=== PATIENT | female | born 1995 ===

== ENCOUNTER 2021-01-18 06:32 | Inpatient (IN) | payer BC ==
[2021-01-18] MEDS ORDERED: Methylergonovine 0.2 MG/1 ML Amp IM PRN (07:01)
[2021-01-18] MEDS ORDERED: Nalbuphine 10 MG/1 ML Vial IVPUSH PRN (07:01)
[2021-01-18] MEDS ORDERED: Water For Irrigation,Sterile 1,000 ML Container IRR PRN (07:01)
[2021-01-18] MEDS ORDERED: Sodium Chloride 0.9% 2.5 ML Syringe FLUSH PRN (07:01)
[2021-01-18] MEDS ORDERED: Sodium Chloride 0.9% 10 ML SDV IV PRN (07:01)
[2021-01-18] MEDS ORDERED: Tranexamic Acid 1,000 MG in Sodium Chloride 0.9% 100 ML IV PRN (07:01)
[2021-01-18] MEDS ORDERED: Ondansetron 4 MG/2 ML SDV IVPUSH PRN (07:01)
[2021-01-18] MEDS ORDERED: Misoprostol 200 MCG Tab PO PRN (07:01)
[2021-01-18] MEDS ORDERED: Lidocaine 1% 50 ML MDV INJECT PRN (07:01)
[2021-01-18] MEDS ORDERED: Carboprost Tromethamine 250 MCG/1 ML Amp IM PRN (07:01)
[2021-01-18] MEDS ORDERED: Butorphanol 1 MG/ML SDV IVPUSH PRN (07:01)
[2021-01-18] MEDS ORDERED: Sodium Chloride 0.9% 10 ML Syringe FLUSH PRN (07:01)
[2021-01-18] MEDS ORDERED: Terbutaline 1 MG/ML SDV SUBCUT PRN (07:04)
[2021-01-18] MEDS ORDERED: Oxytocin/0.9 % Sodium Chloride 30 UNIT/500 ML BAG IV SCH ×2 (07:15)
[2021-01-18] MEDS: Lactated Ringers 1,000 ML IV SCH ×2 (08:13→22:47)
[2021-01-18] MEDS: Misoprostol 25 MCG (1/4 of 100 MCG) Tab VAG PRN ×3 (08:15→16:10)
[2021-01-18] MEDS ORDERED: Ropivacaine HCl/PF 200 ML ONE (22:11)
--- NOTE | 2021-01-18 22:51 | PCM.PREANE ---
Preanesthetic Assessment - Anesthesia/Transfusion/Family Hx Anesthesia History: Prior Anesthesia Without Reaction Family History of Anesthesia Reaction: No Transfusion History: No Prior Transfusion(s) - Review of Systems General: No Symptoms Pulmonary: No Symptoms Cardiovascular: No Symptoms Gastrointestinal: No Symptoms Neurological: No Symptoms Other: Reports: None - Physical Assessment Height: 5 ft 4.96 in Weight: 239 lb 15.994 oz ASA Class: 2 Mental Status: Alert & Oriented x3 Airway Class: Mallampati = 3 Dentition: Reports: Normal Dentition ROM/Head Extension: Full Lungs: Clear to Auscultation, Normal Respiratory Effort Cardiovascular: Regular Rate, Regular Rhythm - Lab Values: Laboratory Last Values WBC 9.80 K/uL (4.0-11.0) 01/18/21 07:47 RBC 4.54 M/uL (4.30-5.90) 01/18/21 07:47 Hgb 10.9 g/dL (12.0-16.0) L 01/18/21 07:47 Hct 33.8 % (36.0-46.0) L 01/18/21 07:47 MCV 74.4 fL (80.0-98.0) L 01/18/21 07:47 MCH 24.0 pg (27.0-32.0) L 01/18/21 07:47 MCHC 32.2 g/dL (31.0-37.0) 01/18/21 07:47 RDW Std Deviation 49.6 fl (28.0-62.0) 01/18/21 07:47 RDW Coeff of Remy 18 % (11.0-15.0) H 01/18/21 07:47 Plt Count 154 K/uL (150-400) 01/18/21 07:47 Nucleated RBC % 0.0 /100WBC 01/18/21 07:47 Nucleated RBCs # 0 K/uL 01/18/21 07:47 SARS-CoV-2 RNA ([place]ISON) NEGATIVE (NEGATIVE) 01/18/21 07:31 Blood Type O POSITIVE 01/18/21 07:47 Antibody Screen NEGATIVE 01/18/21 07:47 - Allergies Allergies/Adverse Reactions: Allergies Allergy/AdvReac Type Severity Reaction Status Date / Time No Known Allergies Allergy Verified 01/18/21 06:59 - Blood Blood Available: Yes Product(s) Available: PRBC - Anesthesia Plan Pre-Op Medication Ordered: None - Acknowledgements Anesthesia Type Planned: Epidural Pt an Appropriate Candidate for the Planned Anesthesia: Yes Alternatives and Risks of Anesthesia Discussed w Pt/Guardian: Yes Pt/Guardian Understands and Agrees with Anesthesia Plan: Yes PreAnesthesia Questionnaire [employer] History: Reports: Psychiatric History: Reports: Anxiety, Depression Other Dermatologic History: Right breast fibroadenoma - Infectious Disease History Infectious Disease History: Reports: Chicken Pox - SUBSTANCE USE Tobacco Use Status *Q: Never Tobacco User Second Hand Smoke Exposure: No Recreational Drug Use History: No - HOME MEDS Home Medications: Home Meds Pnv #30/Iron Carb&Aspg/Fa/Om3 [OB Complete with DHA Softgel] 01/18/21 [History] - CURRENT (IN HOUSE) MEDS Current Meds: Current Medications Butorphanol Tartrate (Butorphanol 1 Mg/Ml Sdv) 1 mg IVPUSH Q1H PRN PRN Reason: Pain (severe 7-10) Carboprost Tromethamine (Carboprost Tromethamine 250 Mcg/1 Ml Amp) 250 mcg IM ASDIRECTED PRN PRN Reason: Post Hemorrhage Oxytocin/Sodium Chloride (Oxytocin 30 Unit/500 Ml-Ns) 30 unit in 500 mls @ 999 mls/hr IV TITRATE SHILA Tranexamic Acid 1,000 mg/ (Sodium Chloride) 110 mls @ 660 mls/hr IV ONETIME PRN PRN Reason: Bleeding Lactated Ringer's (Ringers, Lactated) 1,000 mls @ 150 mls/hr IV ASDIRECTED SHILA Last Infusion: 01/18/21 11:50 Dose: 0 mls/hr Documented by: Oxytocin/Sodium Chloride (Oxytocin 30 Unit/500 Ml-Ns) 30 unit in 500 mls @ 2 mls/hr IV TITRATE SHILA; Protocol Lidocaine HCl (Lidocaine 1% 50 Ml Mdv) 50 ml INJECT ONETIME PRN PRN Reason: Laceration repair Methylergonovine Maleate (Methylergonovine 0.2 Mg/1 Ml Amp) 0.2 mg IM ASDIRECTED PRN PRN Reason: Post Hemorrhage Misoprostol (Misoprostol 200 Mcg Tab) 200 mcg PO ONETIME PRN PRN Reason: Post Hemorrhage Misoprostol (Misoprostol 25 Mcg (1/4 Of 100 Mcg) Tab) 25 mcg VAG Q4H PRN PRN Reason: Cervical Ripening Last Admin: 01/18/21 16:10 Dose: 25 mcg Documented by: Nalbuphine HCl (Nalbuphine 10 Mg/1 Ml Vial) 10 mg IVPUSH Q1H PRN PRN Reason: Pain (severe 7-10) Ondansetron HCl (Ondansetron 4 Mg/2 Ml Sdv) 4 mg IVPUSH Q6H PRN PRN Reason: Nausea/Vomiting Sodium Chloride (Sodium Chloride 0.9% 10 Ml Syringe) 10 ml FLUSH ASDIRECTED PRN PRN Reason: Keep Vein Open Sodium Chloride (Sodium Chloride 0.9% 2.5 Ml Syringe) 2.5 ml FLUSH ASDIRECTED PRN PRN Reason: Keep Vein Open Sodium Chloride (Sodium Chloride 0.9% 10 Ml Sdv) 10 ml IV ASDIRECTED PRN PRN Reason: IV Use Sterile Water (Water For Irrigation,Sterile 1,000 Ml Container) 1,000 ml IRR ASDIRECTED PRN PRN Reason: delivery Terbutaline Sulfate (Terbutaline 1 Mg/Ml Sdv) 0.25 mg SUBCUT ASDIRECTED PRN PRN Reason: Tacysystole Discontinued Medications Ropivacaine (Naropin 0.2%) Confirm Administered Dose 200 mls @ as directed .ROUTE [facility] ONE Stop: 01/18/21 22:12 - Pre-Procedure Checklist Attending Provider Aware: Yes Chart Reviewed: Yes Consent Signed: Yes Labs Reviewed: Yes VS/FHR Reviewed: Yes Patient Identification Confirmation Method: Reports: Verbal Patient Pt an Appropriate Candidate for the Planned Anesthesia: Yes Alternatives and Risks of Anesthesia Discussed w Pt/Guardian: Yes - Procedure Procedure Start Date: 01/18/21 Procedure Start Time: 22:[address]: Reports: Blood Pressure, Heart Rate, SPO2 Functional IV: Yes Safety Measures: Reports: Patient Identified, Procedure Verified, Site Verified, Procedure Time Out Patient Position: Reports: Sitting Prep: Reports: Betadine x3, Sterile Drape Local Anesthetic: Reports: Intradermal Wheal w Lidocaine 1% Regional Placement Level: Reports: L3-4 Needle: Reports: 17 g Touhy Approach: Reports: Midline Technique: Reports: ARISTEO Plastic Syringe Parasthesia: Reports: None Fluid Obtained: Reports: None Test Dose Time: 22:31 Test Dose Medication: Reports: Lidocaine 1.5% w Epinephrine 1:200,000 Test Dose Response: Reports: Negative Loading Dose Time: 22:30 Loading Dose Medication: bupivicaine 0.25% 10cc Loading Dose Patient Position: sitting Continuous Infusion Start Time: 22:35 Continuous Infusion Medication: ropivicaine 0.2% Continuous Infusion Rate: 16 Continuous Infusion PCS Bolus Option: 4 Continuous Infusion Lockout Dose (cc/hr): 15 Patient Position Post Placement: Reports: Supline/LAQUITA VS and FHR Monitored in Unit Post Placement: Yes Procedure End Date: 01/18/21 Procedure End Time: 23:20
[2021-01-19] MEDS: Lactated Ringers 1,000 ML IV SCH ×3 (03:39→17:42)
[2021-01-19] MEDS ORDERED: Ropivacaine HCl/PF 200 ML ONE (11:16)
[2021-01-19] MEDS ORDERED: Sodium Chloride 0.9% 100 ML IV SCH (17:30)
[2021-01-19] MEDS ORDERED: Lanolin 100% Cream 7 GM Tube TOP PRN (18:25)
[2021-01-19] MEDS ORDERED: Bisacodyl 10 MG Supp RECTAL PRN (18:25)
[2021-01-19] MEDS ORDERED: Acetaminophen 500 MG Tab PO PRN (18:25)
[2021-01-19] MEDS ORDERED: Witch Hazel Medicated Pads 40/Jar TOP PRN (18:25)
[2021-01-19] MEDS ORDERED: Ibuprofen 400 MG Tab PO PRN (18:25)
[2021-01-19] MEDS ORDERED: Docusate Sodium 100 MG Cap PO PRN (18:25)
[2021-01-19] MEDS ORDERED: oxyCODONE 5 MG Tab PO PRN (18:25)
[2021-01-19] MEDS ORDERED: Benzocaine/Menthol 20%-0.5% Spray 78 GM Cannister TOP PRN (18:25)
--- NOTE | 2021-01-19 18:35 | PCM.DEL ---
L & D Note - General Info Date of Service: 01/19/21 - Delivery Note Labor: Augmented by Oxytocin Cervical Ripening Method: Misoprostil Delivery Outcome: Livebirth Infant Delivery Method: Spontaneous Vaginal Delivery-Single Presentation: Right Occiput Anterior (TRISTIN) Nuchal Cord: Present Anesthesia Type: Epidural Amniotic Fluid Description: Clear Episiotomy Type: None Laceration: 2nd Degree Suture type: Other (monocryl) Suture size: 2-0 Placenta: Intact Cord: 3 Vessels Estimated Blood Loss: 1,500 Resuscitation Needed: No Score 1 min: 7 Score 5 min: 9 Second Stage Interventions: Reports: Laboring Down, Pushing Effectively Delivery Comments (Free Text/Narrative):: Live female delivered at 454pm , 7/9 weight 4210g 2nd degree vaginal laceration repaired in layers with 2.0 monocryl Left vaginal laceration repaired with 2.0 monocryl Lower uterine segment noted to be atonic , hence with routine pitocin running , Hemabate , Methergine and TXA given EBL : 1500 - General Info Date of Service: 01/19/21 - Patient Data Weight - Most Recent: 108.862 kg Lab Results Last 24 Hours: Laboratory Results - last 24 hr 01/19/21 Range/Units 01:00 Membrane Rupture POSITIVE Med Orders - Current: Current Medications Acetaminophen (Acetaminophen 500 Mg Tab) 500 mg PO Q4H PRN PRN Reason: Pain (mild 1-3) Acetaminophen (Acetaminophen 500 Mg Tab) 1,000 mg PO Q4H PRN PRN Reason: Pain (mild 1-3) Benzocaine/Menthol (Benzocaine/Menthol 20%-0.5% [place] 78 Gm Cannister) 78 gm TOP ASDIRECTED PRN PRN Reason: Perineal Comfort Measure Bisacodyl (Bisacodyl 10 Mg Supp) 10 mg RECTAL ONETIME PRN PRN Reason: Constipation Butorphanol Tartrate (Butorphanol 1 Mg/Ml Sdv) 1 mg IVPUSH Q1H PRN PRN Reason: Pain (severe 7-10) Carboprost Tromethamine (Carboprost Tromethamine 250 Mcg/1 Ml Amp) 250 mcg IM ASDIRECTED PRN PRN Reason: Post Hemorrhage Last Admin: 01/19/21 17:15 Dose: 250 mcg Documented by: Docusate Sodium (Docusate Sodium 100 Mg Cap) 100 mg PO Q12H PRN PRN Reason: Constipation Emollient Ointment (Lanolin 100% Cream 7 Gm Tube) 0 gm TOP ASDIRECTED PRN PRN Reason: Sore Nipples Oxytocin/Sodium Chloride (Oxytocin 30 Unit/500 Ml-Ns) 30 unit in 500 mls @ 999 mls/hr IV TITRATE SHILA Last Admin: 01/19/21 17:42 Dose: 500 mls/hr Documented by: Tranexamic Acid 1,000 mg/ (Sodium Chloride) 110 mls @ 660 mls/hr IV ONETIME PRN PRN Reason: Bleeding Last Admin: 01/19/21 17:05 Dose: 660 mls/hr Documented by: Lactated Ringer's (Ringers, Lactated) 1,000 mls @ 150 mls/hr IV ASDIRECTED [facility] Last Admin: 01/19/21 17:42 Dose: 125 mls/hr Documented by: Oxytocin/Sodium Chloride (Oxytocin 30 Unit/500 Ml-Ns) 30 unit in 500 mls @ 2 mls/hr IV TITRATE [facility]; Protocol Last Titration: 01/19/21 16:54 Dose: 999 munits/min, 999 mls/hr Documented by: Sodium Chloride (Normal Saline) 100 mls @ 150 mls/hr IV ASDIRECTED [facility] Ibuprofen (Ibuprofen 400 Mg Tab) 400 mg PO Q4H PRN PRN Reason: Pain (mild 1-3) Ibuprofen (Ibuprofen 800 Mg Tab) 800 mg PO Q6H PRN PRN Reason: Pain (mild 1-3) Lidocaine HCl (Lidocaine 1% 50 Ml Mdv) 50 ml INJECT ONETIME PRN PRN Reason: Laceration repair Methylergonovine Maleate (Methylergonovine 0.2 Mg/1 Ml Amp) 0.2 mg IM ASDIRECTED PRN PRN Reason: Post Hemorrhage Last Admin: 01/19/21 17:14 Dose: 0.2 mg Documented by: Misoprostol (Misoprostol 200 Mcg Tab) 200 mcg PO ONETIME PRN PRN Reason: Post Hemorrhage Misoprostol (Misoprostol 25 Mcg (1/4 Of 100 Mcg) Tab) 25 mcg VAG Q4H PRN PRN Reason: Cervical Ripening Last Admin: 01/18/21 16:10 Dose: 25 mcg Documented by: Nalbuphine HCl (Nalbuphine 10 Mg/1 Ml Vial) 10 mg IVPUSH Q1H PRN PRN Reason: Pain (severe 7-10) Ondansetron HCl (Ondansetron 4 Mg/2 Ml Sdv) 4 mg IVPUSH Q6H PRN PRN Reason: Nausea/Vomiting Last Admin: 01/19/21 17:15 Dose: 4 mg Documented by: Oxycodone HCl (Oxycodone 5 Mg Tab) 5 mg PO Q2H PRN PRN Reason: Pain (severe 7-10) Sodium Chloride (Sodium Chloride 0.9% 10 Ml Syringe) 10 ml FLUSH ASDIRECTED PRN PRN Reason: Keep Vein Open Sodium Chloride (Sodium Chloride 0.9% 2.5 Ml Syringe) 2.5 ml FLUSH ASDIRECTED PRN PRN Reason: Keep Vein Open Sodium Chloride (Sodium Chloride 0.9% 10 Ml Sdv) 10 ml IV ASDIRECTED PRN PRN Reason: IV Use Sterile Water (Water For Irrigation,Sterile 1,000 Ml Container) 1,000 ml IRR ASDIRECTED PRN PRN Reason: delivery Terbutaline Sulfate (Terbutaline 1 Mg/Ml Sdv) 0.25 mg SUBCUT ASDIRECTED PRN PRN Reason: Tacysystole Witch Savana (Witch Savana Medicated Pads 40/Jar) 1 pad TOP ASDIRECTED PRN PRN Reason: comfort care Discontinued Medications Ropivacaine (Naropin 0.2%) Confirm Administered Dose 200 mls @ as directed .ROUTE .STK-MED ONE Stop: 01/18/21 22:12 Ropivacaine (Naropin 0.2%) Confirm Administered Dose 200 mls @ as directed .ROUTE .STK-MED ONE Stop: 01/19/21 11:17 - Exam Urinary Catheter Total Time: 0Days 6Hours - Problem List & Annotations (1) Vaginal delivery SNOMED Code(s): 598479545 Code(s): O80 - ENCOUNTER FOR FULL-TERM UNCOMPLICATED DELIVERY Status: Acute Current Visit: Yes (2) hemorrhage SNOMED Code(s): 80705858 Code(s): O72.1 - OTHER IMMEDIATE HEMORRHAGE Status: Acute Current Visit: Yes Qualifiers: hemorrhage type: third-stage Qualified Code(s): O72.0 - Third- stage hemorrhage - Problem List Review Problem List Initiated/Reviewed/Updated: Yes - My Orders Last 24 Hours: My Active Orders 01/19/21 07:37 Antiembolic Devices [RC] PER UNIT ROUTINE SCD [Sequential Compression Device] [OM.PC] Routine 01/19/21 17:30 Sodium Chloride 0.9% [Normal Saline] 100 ml IV ASDIRECTED 01/19/21 18:25 Patient Status [ADT] Routine May Shower [RC] ASDIRECTED Up ad Maude [RC] ASDIRECTED Vital Signs [RC] PER UNIT ROUTINE CBC WITH AUTO DIFF [HEME] Routine Acetaminophen [Tylenol Extra Strength] 1,000 mg PO Q4H PRN Acetaminophen [Tylenol Extra Strength] 500 mg PO Q4H PRN Benzocaine/Menthol [Dermoplast Pain Relief 20%-0.5% [place]] 78 gm TOP ASDIRECTED PRN Docusate Sodium [Colace] 100 mg PO Q12H PRN Ibuprofen [Motrin] 400 mg PO Q4H PRN Ibuprofen [Motrin] 800 mg PO Q6H PRN Lanolin [Lansinoh HPA] See Dose Instructions TOP ASDIRECTED PRN bisacodyL [Dulcolax] 10 mg RECTAL ONETIME PRN oxyCODONE 5 mg PO Q2H PRN witch Savana [Tucks] 1 pad TOP ASDIRECTED PRN Assess Lochia [WOMSER] Per Unit Routine Assess Uterine Involution [WOMSER] Per Unit Routine Peripheral IV Discontinue [OM.PC] Routine Resuscitation Status Routine 01/20/21 06:00 HEMOGLOBIN/HEMATOCRIT,HH [HEME] Routine - Assessment Assessment:: 25yo P1 s/p PPDO Hemorrhage , EBL 1500 Macrosomia Rh positive Rubella Immune - Plan Plan:: Routine care
[2021-01-19] MEDS: Ibuprofen 800 MG Tab PO PRN (19:20)
[2021-01-20] MEDS: Acetaminophen 500 MG Tab PO PRN ×2 (01:13→07:54)
[2021-01-20] MEDS: Lactated Ringers 1,000 ML IV SCH (01:56)
--- NOTE | 2021-01-20 08:53 | PCM.PNPP ---
- General Info Date of Service: 01/20/21 Subjective Update: Patient reports minimal dizziness with ambulation, however does note that she shakes when standing. Denies chest pain, shortness of breath. Minimal bleeding. Bottle feeding. Functional Status: Reports: Pain Controlled, Tolerating Diet, Ambulating, Urinating - Review of Systems General: Reports: No Symptoms HEENT: Reports: No Symptoms Pulmonary: Reports: No Symptoms Cardiovascular: Reports: No Symptoms Gastrointestinal: Reports: No Symptoms Genitourinary: Reports: No Symptoms Musculoskeletal: Reports: No Symptoms Skin: Reports: No Symptoms Neurological: Reports: No Symptoms Psychiatric: Reports: No Symptoms - Patient Data Vital Signs - Most Recent: Last Vital Signs Temp 36.2 C 01/20/21 07:59 Pulse 98 01/20/21 07:59 Resp 18 01/20/21 07:59 BP 116/52 L 01/20/21 07:59 Pulse Ox 98 01/20/21 07:59 Weight - Most Recent: 108.862 kg Lab Results - Last 24 Hours: Laboratory Results - last 24 hr 01/18/21 01/19/21 01/20/21 Range/Units 07:47 19:04 05:51 WBC 17.21 H (4.0-11.0) K/uL RBC 3.59 L (4.30-5.90) M/uL Hgb 8.6 L 6.2 L (12.0-16.0) g/dL Hct 26.7 L 19.5 L (36.0-46.0) % MCV 74.4 L (80.0-98.0) fL MCH 24.0 L (27.0-32.0) pg MCHC 32.2 (31.0-37.0) g/dL RDW Std Deviation 50.0 (28.0-62.0) fl RDW Coeff of Remy 18 H (11.0-15.0) % Plt Count 143 L (150-400) K/uL MPV 11.60 (7.40-12.00) fL Neut % (Auto) 86.0 H (48.0-80.0) % Lymph % (Auto) 4.4 L (16.0-40.0) % [place] % (Auto) 9.4 (0.0-15.0) % Eos % (Auto) 0.1 (0.0-7.0) % Baso % (Auto) 0.1 (0.0-1.5) % Neut # (Auto) 14.8 H (1.4-5.7) K/uL Lymph # (Auto) 0.8 (0.6-2.4) K/uL Caroline # (Auto) 1.6 H (0.0-0.8) K/uL Eos # (Auto) 0.0 (0.0-0.7) K/uL Baso # (Auto) 0.0 (0.0-0.1) K/uL Nucleated RBC % 0.0 /100WBC Nucleated RBCs # 0 K/uL Blood Type O POSITIVE Antibody Screen NEGATIVE Crossmatch See Detail Med Orders - Current: Current Medications Acetaminophen (Acetaminophen 500 Mg Tab) 500 mg PO Q4H PRN PRN Reason: Pain (mild 1-3) Acetaminophen (Acetaminophen 500 Mg Tab) 1,000 mg PO Q4H PRN PRN Reason: Pain (mild 1-3) Last Admin: 01/20/21 07:54 Dose: 1,000 mg Documented by: Benzocaine/Menthol (Benzocaine/Menthol 20%-0.5% [place] 78 Gm Cannister) 78 gm TOP ASDIRECTED PRN PRN Reason: Perineal Comfort Measure Last Admin: 01/19/21 19:21 Dose: 78 gram Documented by: Bisacodyl (Bisacodyl 10 Mg Supp) 10 mg RECTAL ONETIME PRN PRN Reason: Constipation Butorphanol Tartrate (Butorphanol 1 Mg/Ml Sdv) 1 mg IVPUSH Q1H PRN PRN Reason: Pain (severe 7-10) Carboprost Tromethamine (Carboprost Tromethamine 250 Mcg/1 Ml Amp) 250 mcg IM ASDIRECTED PRN PRN Reason: Post Hemorrhage Last Admin: 01/19/21 17:15 Dose: 250 mcg Documented by: Docusate Sodium (Docusate Sodium 100 Mg Cap) 100 mg PO Q12H PRN PRN Reason: Constipation Emollient Ointment (Lanolin 100% Cream 7 Gm Tube) 0 gm TOP ASDIRECTED PRN PRN Reason: Sore Nipples Last Admin: 01/19/21 19:21 Dose: 7 gm Documented by: Oxytocin/Sodium Chloride (Oxytocin 30 Unit/500 Ml-Ns) 30 unit in 500 mls @ 999 mls/hr IV TITRATE SHILA Last Admin: 01/19/21 17:42 Dose: 500 mls/hr Documented by: Tranexamic Acid 1,000 mg/ (Sodium Chloride) 110 mls @ 660 mls/hr IV ONETIME PRN PRN Reason: Bleeding Last Admin: 01/19/21 17:05 Dose: 660 mls/hr Documented by: Lactated Ringer's (Ringers, Lactated) 1,000 mls @ 150 mls/hr IV ASDIRECTED SHILA Last Admin: 01/20/21 01:56 Dose: 125 mls/hr Documented by: Oxytocin/Sodium Chloride (Oxytocin 30 Unit/500 Ml-Ns) 30 unit in 500 mls @ 2 mls/hr IV TITRATE SHILA; Protocol Last Titration: 01/19/21 16:54 Dose: 999 munits/min, 999 mls/hr Documented by: Ibuprofen (Ibuprofen 400 Mg Tab) 400 mg PO Q4H PRN PRN Reason: Pain (mild 1-3) Ibuprofen (Ibuprofen 800 Mg Tab) 800 mg PO Q6H PRN PRN Reason: Pain (mild 1-3) Last Admin: 01/19/21 19:20 Dose: 800 mg Documented by: Lidocaine HCl (Lidocaine 1% 50 Ml Mdv) 50 ml INJECT ONETIME PRN PRN Reason: Laceration repair Methylergonovine Maleate (Methylergonovine 0.2 Mg/1 Ml Amp) 0.2 mg IM ASDIRECTED PRN PRN Reason: Post Hemorrhage Last Admin: 01/19/21 17:14 Dose: 0.2 mg Documented by: Misoprostol (Misoprostol 200 Mcg Tab) 200 mcg PO ONETIME PRN PRN Reason: Post Hemorrhage Misoprostol (Misoprostol 25 Mcg (1/4 Of 100 Mcg) Tab) 25 mcg VAG Q4H PRN PRN Reason: Cervical Ripening Last Admin: 01/18/21 16:10 Dose: 25 mcg Documented by: Nalbuphine HCl (Nalbuphine 10 Mg/1 Ml Vial) 10 mg IVPUSH Q1H PRN PRN Reason: Pain (severe 7-10) Ondansetron HCl (Ondansetron 4 Mg/2 Ml Sdv) 4 mg IVPUSH Q6H PRN PRN Reason: Nausea/Vomiting Last Admin: 01/19/21 17:15 Dose: 4 mg Documented by: Oxycodone HCl (Oxycodone 5 Mg Tab) 5 mg PO Q2H PRN PRN Reason: Pain (severe 7-10) Sodium Chloride (Sodium Chloride 0.9% 10 Ml Syringe) 10 ml FLUSH ASDIRECTED PRN PRN Reason: Keep Vein Open Sodium Chloride (Sodium Chloride 0.9% 2.5 Ml Syringe) 2.5 ml FLUSH ASDIRECTED PRN PRN Reason: Keep Vein Open Sodium Chloride (Sodium Chloride 0.9% 10 Ml Sdv) 10 ml IV ASDIRECTED PRN PRN Reason: IV Use Sterile Water (Water For Irrigation,Sterile 1,000 Ml Container) 1,000 ml IRR ASDIRECTED PRN PRN Reason: delivery Terbutaline Sulfate (Terbutaline 1 Mg/Ml Sdv) 0.25 mg SUBCUT ASDIRECTED PRN PRN Reason: Tacysystole Witch Savana (Witch Savana Medicated Pads 40/Jar) 1 pad TOP ASDIRECTED PRN PRN Reason: comfort care Last Admin: 01/19/21 19:22 Dose: 1 pad Documented by: Discontinued Medications Ropivacaine (Naropin 0.2%) Confirm Administered Dose 200 mls @ as directed .ROUTE .STK-MED ONE Stop: 01/18/21 22:12 Ropivacaine (Naropin 0.2%) Confirm Administered Dose 200 mls @ as directed .ROUTE .STK-MED ONE Stop: 01/19/21 11:17 Sodium Chloride (Normal Saline) 100 mls @ 150 mls/hr IV ASDIRECTED SHILA - Interaction Infant Disposition, : [place] in Room with Family Infant Feeding: Bottle Fed Infant Support Person: - Recovery Exam Fundal Level: 2 Fingerbreadths Below Umbilicus Fundal Placement: Midline Lochia Amount: Small Lochia Color: Rubra/Red Bladder Status: Voiding Urinary Elimination: Voided - Exam General: Alert, Oriented Neck: Supple Lungs: Normal Respiratory Effort GI/Abdominal Exam: Soft, Non-Tender, No Distention Extremities: No Pedal Edema Skin: Warm, Dry, Intact Neurological: No New Focal Deficit Psy/Mental Status: Alert, Normal Affect, Normal Mood - Problem List & Annotations (1) hemorrhage SNOMED Code(s): 22108053 Code(s): O72.1 - OTHER IMMEDIATE HEMORRHAGE Status: Acute Current Visit: Yes Qualifiers: hemorrhage type: third-stage Qualified Code(s): O72.0 - Third- stage hemorrhage (2) Vaginal delivery SNOMED Code(s): 059612195 Code(s): O80 - ENCOUNTER FOR FULL-TERM UNCOMPLICATED DELIVERY Status: Acute Current Visit: Yes - Problem List Review Problem List Initiated/Reviewed/Updated: Yes - My Orders Last 24 Hours: My Active Orders 01/20/21 Breakfast Regular Diet [DIET] 01/20/21 07:41 Verify Patient Consent Obtain [RC] ASDIRECTED RED BLOOD CELLS LP [BBK] Routine Transfuse Red Blood Cells [COMM] Routine 01/21/21 05:11 HEMOGLOBIN/HEMATOCRIT,HH [HEME] AM - Assessment Assessment:: 25yo s/p , PPD#1 - Plan Plan:: 1. hemorrhage with anemia: Plan for transfusion of 2 units packed RBCs due to symptomatic anemia and hemoglobin of 6.2. Repeat hemoglobin in AM. 2. Rh positive, Rubella immune, GBS negative 3. Dispo: Plan discharge on PPD#2 if hemoglobin stable and asymptomatic.
[2021-01-20] MEDS: Ibuprofen 800 MG Tab PO PRN ×2 (14:18→23:14)
[2021-01-21] MEDS: Acetaminophen 500 MG Tab PO PRN (08:21)
--- NOTE | 2021-01-21 08:36 | PCM.PNPP ---
- General Info Date of Service: 01/21/21 Subjective Update: Patient states she feels better after having received blood transfusion yesterday. Denies dizziness, chest pain, shortness of breath. Minimal lochia. Functional Status: Reports: Pain Controlled, Tolerating Diet, Ambulating, Urinating - Review of Systems General: Reports: No Symptoms HEENT: Reports: No Symptoms Pulmonary: Reports: No Symptoms Cardiovascular: Reports: No Symptoms Gastrointestinal: Reports: No Symptoms Genitourinary: Reports: No Symptoms Musculoskeletal: Reports: No Symptoms Skin: Reports: No Symptoms Neurological: Reports: No Symptoms Psychiatric: Reports: No Symptoms - Patient Data Vital Signs - Most Recent: Last Vital Signs Temp 36.5 C 01/21/21 07:39 Pulse 75 01/21/21 07:39 Resp 16 01/21/21 07:39 BP 122/65 01/21/21 07:39 Pulse Ox 99 01/21/21 07:39 Weight - Most Recent: 108.862 kg I&O - Last 24 Hours: Intake & Output 01/20/21 01/21/21 01/21/21 22:59 06:59 14:59 Intake Total 350 Balance 350 Lab Results - Last 24 Hours: Laboratory Results - last 24 hr 01/18/21 01/18/21 01/21/21 Range/Units 07:47 07:47 05:45 Hgb 8.6 L (12.0-16.0) g/dL Hct 25.9 L (36.0-46.0) % RPR Non-Reac (Non-Reac) Blood Type O POSITIVE Antibody Screen NEGATIVE Crossmatch See Detail Med Orders - Current: Current Medications Acetaminophen (Acetaminophen 500 Mg Tab) 500 mg PO Q4H PRN PRN Reason: Pain (mild 1-3) Acetaminophen (Acetaminophen 500 Mg Tab) 1,000 mg PO Q4H PRN PRN Reason: Pain (mild 1-3) Last Admin: 01/21/21 08:21 Dose: 1,000 mg Documented by: Benzocaine/Menthol (Benzocaine/Menthol 20%-0.5% [place] 78 Gm Cannister) 78 gm TOP ASDIRECTED PRN PRN Reason: Perineal Comfort Measure Last Admin: 01/19/21 19:21 Dose: 78 gram Documented by: Bisacodyl (Bisacodyl 10 Mg Supp) 10 mg RECTAL ONETIME PRN PRN Reason: Constipation Carboprost Tromethamine (Carboprost Tromethamine 250 Mcg/1 Ml Amp) 250 mcg IM ASDIRECTED PRN PRN Reason: Post Hemorrhage Last Admin: 01/19/21 17:15 Dose: 250 mcg Documented by: Docusate Sodium (Docusate Sodium 100 Mg Cap) 100 mg PO Q12H PRN PRN Reason: Constipation Last Admin: 01/20/21 20:51 Dose: 100 mg Documented by: Emollient Ointment (Lanolin 100% Cream 7 Gm Tube) 0 gm TOP ASDIRECTED PRN PRN Reason: Sore Nipples Last Admin: 01/19/21 19:21 Dose: 7 gm Documented by: Lactated Ringer's (Ringers, Lactated) 1,000 mls @ 150 mls/hr IV ASDIRECTED SHILA Last Admin: 01/20/21 01:56 Dose: 125 mls/hr Documented by: Ibuprofen (Ibuprofen 400 Mg Tab) 400 mg PO Q4H PRN PRN Reason: Pain (mild 1-3) Ibuprofen (Ibuprofen 800 Mg Tab) 800 mg PO Q6H PRN PRN Reason: Pain (mild 1-3) Last Admin: 01/20/21 23:14 Dose: 800 mg Documented by: Methylergonovine Maleate (Methylergonovine 0.2 Mg/1 Ml Amp) 0.2 mg IM ASDIRECTED PRN PRN Reason: Post Hemorrhage Last Admin: 01/19/21 17:14 Dose: 0.2 mg Documented by: Misoprostol (Misoprostol 200 Mcg Tab) 200 mcg PO ONETIME PRN PRN Reason: Post Hemorrhage Oxycodone HCl (Oxycodone 5 Mg Tab) 5 mg PO Q2H PRN PRN Reason: Pain (severe 7-10) Sodium Chloride (Sodium Chloride 0.9% 10 Ml Syringe) 10 ml FLUSH ASDIRECTED PRN PRN Reason: Keep Vein Open Sodium Chloride (Sodium Chloride 0.9% 2.5 Ml Syringe) 2.5 ml FLUSH ASDIRECTED PRN PRN Reason: Keep Vein Open Sodium Chloride (Sodium Chloride 0.9% 10 Ml Sdv) 10 ml IV ASDIRECTED PRN PRN Reason: IV Use Witch Savana (Witch Savana Medicated Pads 40/Jar) 1 pad TOP ASDIRECTED PRN PRN Reason: comfort care Last Admin: 01/19/21 19:22 Dose: 1 pad Documented by: Discontinued Medications Butorphanol Tartrate (Butorphanol 1 Mg/Ml Sdv) 1 mg IVPUSH Q1H PRN PRN Reason: Pain (severe 7-10) Oxytocin/Sodium Chloride (Oxytocin 30 Unit/500 Ml-Ns) 30 unit in 500 mls @ 999 mls/hr IV TITRATE SHILA Last Admin: 01/19/21 17:42 Dose: 500 mls/hr Documented by: Tranexamic Acid 1,000 mg/ (Sodium Chloride) 110 mls @ 660 mls/hr IV ONETIME PRN PRN Reason: Bleeding Last Admin: 01/19/21 17:05 Dose: 660 mls/hr Documented by: Oxytocin/Sodium Chloride (Oxytocin 30 Unit/500 Ml-Ns) 30 unit in 500 mls @ 2 mls/hr IV TITRATE SHILA; Protocol Last Titration: 01/19/21 16:54 Dose: 999 munits/min, 999 mls/hr Documented by: Ropivacaine (Naropin 0.2%) Confirm Administered Dose 200 mls @ as directed .ROUTE .STK-MED ONE Stop: 01/18/21 22:12 Ropivacaine (Naropin 0.2%) Confirm Administered Dose 200 mls @ as directed .ROUTE .STK-MED ONE Stop: 01/19/21 11:17 Last Admin: 01/20/21 09:41 Dose: Not Given Documented by: Sodium Chloride (Normal Saline) 100 mls @ 150 mls/hr IV ASDIRECTED SHILA Lidocaine HCl (Lidocaine 1% 50 Ml Mdv) 50 ml INJECT ONETIME PRN PRN Reason: Laceration repair Misoprostol (Misoprostol 25 Mcg (1/4 Of 100 Mcg) Tab) 25 mcg VAG Q4H PRN PRN Reason: Cervical Ripening Last Admin: 01/18/21 16:10 Dose: 25 mcg Documented by: Nalbuphine HCl (Nalbuphine 10 Mg/1 Ml Vial) 10 mg IVPUSH Q1H PRN PRN Reason: Pain (severe 7-10) Ondansetron HCl (Ondansetron 4 Mg/2 Ml Sdv) 4 mg IVPUSH Q6H PRN PRN Reason: Nausea/Vomiting Last Admin: 01/19/21 17:15 Dose: 4 mg Documented by: Sterile Water (Water For Irrigation,Sterile 1,000 Ml Container) 1,000 ml IRR ASDIRECTED PRN PRN Reason: delivery Terbutaline Sulfate (Terbutaline 1 Mg/Ml Sdv) 0.25 mg SUBCUT ASDIRECTED PRN PRN Reason: Tacysystole - Interaction Infant Disposition, : [place] in Room with Family Feeding: Bottle Fed Support Person: - Recovery Exam Fundal Tone: Firm Fundal Level: 2 Fingerbreadths Below Umbilicus Fundal Placement: Midline Lochia Amount: Scant Lochia Color: Rubra/Red Bladder Status: Nonpalpable, Voiding Urinary Elimination: Voided - Exam General: Alert, Oriented Neck: Supple Lungs: Normal Respiratory Effort GI/Abdominal Exam: Soft, Non-Tender, No Distention Skin: Warm, Dry, Intact Neurological: No New Focal Deficit Psy/Mental Status: Alert, Normal Affect, Normal Mood - Problem List & Annotations (1) hemorrhage SNOMED Code(s): 97145501 Code(s): O72.1 - OTHER IMMEDIATE HEMORRHAGE Status: Acute Current Visit: Yes Qualifiers: hemorrhage type: third-stage Qualified Code(s): O72.0 - Third- stage hemorrhage (2) Vaginal delivery SNOMED Code(s): 065907631 Code(s): O80 - ENCOUNTER FOR FULL-TERM UNCOMPLICATED DELIVERY Status: Acute Current Visit: Yes - Problem List Review Problem List Initiated/Reviewed/Updated: Yes - My Orders Last 24 Hours: My Active Orders 01/20/21 07:41 Transfuse Red Blood Cells [COMM] Routine 01/21/21 08:30 Ready for Discharge [RC] PER UNIT ROUTINE - Assessment Assessment:: 25yo s/p , PPD#2 - Plan Plan:: 1. hemorrhage with anemia: Received 2 units packed RBCs yesterday with appropriate increase in hemoglobin. Continue oral iron supplement. 2. Rh positive, Rubella immune, GBS negative 3. Dispo: Discharge home today. Reviewed discharge instructions/precautions. All questions answered.
--- NOTE | 2021-01-21 08:49 | OR ---
SURGEON: CINDY SERRANO DATE OF PROCEDURE: 01/18/2021 PREOPERATIVE DIAGNOSIS: A 25-year-old, 1, para 0, at 40 weeks one day for induction of labor, elective with suspected macrosomia. POSTOPERATIVE DIAGNOSIS: A 25-year-old, 1, para 0, at 40 weeks one day for induction of labor, elective with suspected macrosomia. PPH PROCEDURE: Normal spontaneous vaginal delivery Repair of second-degree laceration, Medical management of hemorrhage. ESTIMATED BLOOD LOSS: 1500. IV FLUIDS: Pitocin running. ANESTHESIA: Epidural. NOTES AND FINDINGS: A live female delivered at 454pm, score 7 and 9, weight is 4210 g. Also noted was bleeding and lower uterine atony. As a result, Methergine was given. Hemabate was given. Tranexamic acid was also given. Bimanual massage was done, which helped to control bleeding. BRIEF HISTORY ABOUT THE PATIENT: She is a 25-year-old G1, P0, 40 weeks and 1 day, who came in for elective induction of labor. She had suspected macrosomia. She had 3 doses of Cytotec given. After Cytotec was started, she was about 3 cm to 4 cm dilated. There was a delay before pitocin was started. However, Pitocin was eventually started. When Pitocin was started, she then had a normal labor course and she became fully dilated. With the patient being fully dilated, she was encouraged to push. She had good pushing effort. DESCRIPTION OF PROCEDURE: With good pushing effort, she delivered the head subsequently by the anterior and posterior shoulder. The was delivered. The infant was placed on maternal abdomen. Delayed cord clamping was observed. Placenta was delivered via controlled cord traction. After delivery of placenta, there was a significant amount of bleeding noted. Uterotonics were given with TXA. Then, the laceration was also bleeding, which was repaired in layers with a 2-0 Monocryl. The second-degree was initially repaired. Then, the left vagina wall was also repaired. After the repair, the bleeding was noted to be well controlled. The patient tolerated the procedure well. She will have a CBC done. If anemic, she would have a blood transfusion, which she accepted. The patient tolerated the procedure well. All instrument and pad counts were correct x2. LISA / REYNALDO /[id number] MTDMarsha
--- NOTE | 2021-01-24 12:52 | PCM48HPAN ---
Post Anesthesia Note - EVALUATION WITHIN 48HRS OF ANESTHETIC Vital Signs in Normal Range: Yes Patient Participated in Evaluation: Yes Respiratory Function Stable: Yes Airway Patent: Yes Cardiovascular Function Stable: Yes Hydration Status Stable: Yes Pain Control Satisfactory: Yes Nausea and Vomiting Control Satisfactory: Yes Mental Status Recovered: Yes Vital Signs: Last Vital Signs Temp 97.7 F 01/21/21 07:39 Pulse 75 01/21/21 07:39 Resp 16 01/21/21 07:39 BP 122/65 01/21/21 07:39 Pulse Ox 99 01/21/21 07:39
--- NOTE | 2021-01-24 12:52 | PCM.POSTAN ---
POST ANESTHESIA ASSESSMENT - MENTAL STATUS Mental Status: Alert, Oriented - VITAL SIGNS Vital Signs: Last Vital Signs Temp 97.7 F 01/21/21 07:39 Pulse 75 01/21/21 07:39 Resp 16 01/21/21 07:39 BP 122/65 01/21/21 07:39 Pulse Ox 99 01/21/21 07:39 - RESPIRATORY Respiratory Status: Respiratory Rate WNL, Airway Patent, O2 Saturation Stable - CARDIOVASCULAR CV Status: Pulse Rate WNL, Blood Pressure Stable - GASTROINTESTINAL GI Status: No Symptoms - POST OP HYDRATION Hydration Status: Adequate & Stable
== END 2021-01-21 14:50 | disposition home or self-care (01) | DRG 560 ==
LOC: MW.OBCHECK 06:32 → MW.OB 06:33 → MW.OBCHECK 07:01 → MW.OB 07:01 → OBSVTOIN 18:25 → MW.OB 01-20 02:21
PROVIDERS: ADMIT Obstetrics & Gynecology; ATTEND Obstetrics & Gynecology
PROC: 10E0XZZ Delivery of Products of Conception, External Approach (ICD-10-PCS; principal; 2021-01-18)
PROC: 10907ZC Drainage of Amniotic Fluid, Therapeutic from Products of Conception, Via Natural or Artificial Opening (ICD-10-PCS; 2021-01-18)
PROC: 3E0P7VZ Introduction of Hormone into Female Reproductive, Via Natural or Artificial Opening (ICD-10-PCS; 2021-01-18)
PROC: 0KQM0ZZ Repair Perineum Muscle, Open Approach (ICD-10-PCS; 2021-01-18)
PROC: 30233N1 Transfusion of Nonautologous Red Blood Cells into Peripheral Vein, Percutaneous Approach (ICD-10-PCS; 2021-01-18)
PROC: 4A1HXCZ Monitoring of Products of Conception, Cardiac Rate, External Approach (ICD-10-PCS; 2021-01-18)
PROC: 3E0R3BZ Introduction of Anesthetic Agent into Spinal Canal, Percutaneous Approach (ICD-10-PCS; 2021-01-18)
DX: O48.0 Post-term pregnancy (principal); O99.214 Obesity complicating childbirth; Z37.0 Single live birth; O69.81X0 Labor and delivery complicated by cord around neck, without compression, not applicable or unspecified; O72.0 Third-stage hemorrhage; O36.63X0 Maternal care for excessive fetal growth, third trimester, not applicable or unspecified; O70.1 Second degree perineal laceration during delivery; O99.02 Anemia complicating childbirth; D50.0 Iron deficiency anemia secondary to blood loss (chronic); Z3A.40 40 weeks gestation of pregnancy; Z20.822 Contact with and (suspected) exposure to COVID-19
CPT/HCPCS: 01967; 36415; 36430; 51702; 59025; 59409; 84112; 85014; 85018; 85025; 85027; 86592; 86850; 86900; 86901; 86920; 86921; 86922; A9270-GY; J2210; J2405; J2590; J2795; J7120; P9016; U0002